=== PATIENT | female | born 1955 | race Hispanic/Latino ===

== ENCOUNTER 2019-02-07 09:49 | Emergency (ER) | payer OTHER, MEDICARE ==
[~2019-02-07 09:49] MED LIST: ASCO-512 PO; ASPI-555 PO; ATOR40TA69 PO; CALC-1106 PO; ERGO2500 PO; HUM10VIA SQ; KETO5DRO82 OS; LEVO50TA11 PO; LIRA0.6P SQ; LISI10TA7 PO; LUTE20TA PO; METO50 PO; MV,C400T3 PO; NEOM7.5D3 OU; OFLO5DRO OS; OMEG-53 PO; PRED5DRO17 OS; SITA100T12 PO; TICA90TA PO; VITA-164 PO; ZINC50TA64 PO
[2019-02-07 10:33] LABS: BASOPHILS % (AUTO) 0.8 % (0.0-5.0); EOSINOPHILS % (AUTO) 4.7 % (0.0-8.0); HEMATOCRIT 34.8 % (36-48); LYMPHOCYTES % (AUTO) 13.3 % (21.0-51.0); MEAN CORPUSCULAR HEMOGLOBIN 28.1 pg (27.0-33.0); MEAN CORPUSCULAR HGB CONC 32.8 g/dL (32.0-36.0); MEAN CORPUSCULAR VOLUME 85.7 fL (79-99); MONOCYTES % (AUTO) 7.4 % (3.0-13.0); NEUTROPHILS % (AUTO) 73.2 % (40.0-77.0); PLATELET COUNT (AUTO) 303 K/uL (130-400); RED BLOOD CELL COUNT(AUTO) 4.06 MIL/uL (4.00-5.50); WHITE BLOOD COUNT (AUTO) 8.7 K/uL (4.8-10.8)
[2019-02-07] MEDS ORDERED: ONDANSETRON ODT 4 MG TAB ONE (10:39)
[2019-02-07 10:40] LABS: CREATININE 0.7 mg/dL (0.5-1.5); POTASSIUM 4.2 mmol/L (3.5-5.1)
[2019-02-07 10:47] LABS: ALBUMIN 3.3 g/dL (3.5-5.0); BILIRUBIN,TOTAL 0.4 mg/dL (0.2-1.0)
== END 2019-02-07 12:43 | disposition home or self-care (01) ==
LOC: EDH 09:49
DX: G44.209 Tension-type headache, unspecified, not intractable (principal); I25.10 Atherosclerotic heart disease of native coronary artery without angina pectoris; E10.9 Type 1 diabetes mellitus without complications; E78.5 Hyperlipidemia, unspecified; Z90.710 Acquired absence of both cervix and uterus; Z90.49 Acquired absence of other specified parts of digestive tract; Z98.890 Other specified postprocedural states
CPT/HCPCS: 36415; 70450; 80053; 82550; 84484; 85025; 93005

== ENCOUNTER → 2023-03-24 | Outpatient (CLI) | payer MEDICARE ==
[~2023-03-24] MED LIST changes: -ASCO-512 PO; +ASCO500T92 PO; -ASPI-555 PO; +ASPI-556 PO; +LISI10TA24 PO; -LISI10TA7 PO; -VITA-164 PO; +VITA-348 PO
== END | disposition home or self-care (01) ==
LOC: RAH 16:01
PROVIDERS: ATTEND Family Medicine
DX: I65.22 Occlusion and stenosis of left carotid artery (principal); R09.89 Other specified symptoms and signs involving the circulatory and respiratory systems
CPT/HCPCS: 93880